=== PATIENT | female | born 1950 | race Caucasian/White ===

== ENCOUNTER → 2018-10-06 | Outpatient (CLI) | payer OTHER ==
[~2018-10-06] MED LIST: ACET-1600 PO; AMLO-150 PO; CHLO25TA PO; CYCL-259 PO; DICL100G19 TP; GLUC1CAP18 PO; HYDR-3240 PO; NAPR220T77 PO; POTA20TA89 PO
[2018-10-06 10:40] LABS: BASOPHILS # (AUTO) 0.04 x10^3/uL (0-0.1); BASOPHILS % (AUTO) 1 % (0-1); EOSINOPHILS # (AUTO) 0.13 x10^3/uL (0-0.4); EOSINOPHILS % (AUTO) 2 % (1-7); LYMPHOCYTES # (AUTO) 1.71 x10^3/uL (1-3.4); LYMPHOCYTES % (AUTO) 31 % (22-44); MD NO; MEAN CORPUSCULAR HEMOGLOBIN 33.8 pg (27.0-34.8); MEAN CORPUSCULAR HGB CONC 34.2 g/dL (32.4-35.8); MEAN CORPUSCULAR VOLUME 98.8 fL (80-100); MEAN PLATELET VOLUME 9.3 fL (7.4-10.4); MONOCYTES # (AUTO) 0.63 x10^3/uL (0.2-0.8); MONOCYTES % (AUTO) 11 % (2-9); NEUTROPHILS # (AUTO) 3.07 x10^3/uL (1.8-6.8); NEUTROPHILS % (AUTO) 55 % (42-75); PLATELET COUNT 184 x10^3/uL (130-400); RED CELL DISTRIBUTION WIDTH 13.4 % (9.6-15.2)
[2018-10-06 10:51] LABS: INTERNATIONAL NORMALIZED RATIO 1.18 (0.93-1.1); PROTHROMBIN TIME 12.3 Seconds (9.6-11.5)
[2018-10-06 10:52] LABS: ALANINE AMINOTRANSFERASE 69 U/L (12-78); ALBUMIN 3.9 g/dL (3.4-5.0); ANION GAP 9 mmol/L (5-15); CALCIUM 9.2 mg/dL (8.5-10.1); CHLORIDE 103 mmol/L (98-107); CREATININE 0.84 mg/dL (0.55-1.02)
[2018-10-06 10:54] LABS: ALKALINE PHOSPHATASE 132 U/L (45-117); BILIRUBIN,TOTAL 1.1 mg/dL (0.2-1.0); TOTAL PROTEIN 8.1 g/dL (6.4-8.2)
== END | disposition home or self-care (01) ==
LOC: STAR 09:18
PROVIDERS: ATTEND Neurological Surgery
DX: Z01.818 Encounter for other preprocedural examination (principal); M48.02 Spinal stenosis, cervical region
CPT/HCPCS: 36415; 71046; 80053; 85025; 85610; 85730; 93005

== ENCOUNTER 2018-10-20 06:11 | Inpatient (IN) | payer OTHER ==
[~2018-10-20] VITALS: Ht 165.1 cm; Wt 77.2 kg
[2018-10-20] MEDS ORDERED: LACTATED RINGERS 1,000 ML IV SCH (06:56)
[2018-10-20] MEDS ORDERED: BUPIVACAINE/EPI 0.5% 1:200K ONE (06:57)
[2018-10-20] MEDS ORDERED: THROMBIN 5,000 UNIT VIAL TP ONE ×2 (06:57→12:02)
[2018-10-20] MEDS ORDERED: BACITRACIN 50,000 UNIT ONE (06:58)
[2018-10-20] MEDS ORDERED: ACETAMINOPHEN 500 MG TABLET PO ONE (07:00)
[2018-10-20] MEDS ORDERED: ONDANSETRON ODT 8 MG PO ONE (07:00)
[2018-10-20] MEDS ORDERED: LIDOCAINE-MPF 1%, 2ML INFIL ONE (07:00)
[2018-10-20] MEDS ORDERED: GABAPENTIN 300 MG CAPSULE PO ONE (07:00)
[2018-10-20] MEDS ORDERED: FENTANYL PF 250 MCG/5ML ONE (08:11)
[2018-10-20] MEDS ORDERED: MIDAZOLAM 1 MG/ML, 2ML ONE (08:11)
[2018-10-20] MEDS ORDERED: PROPOFOL 50 ML ONE ×4 (08:11→11:27)
[2018-10-20] MEDS ORDERED: CEFAZOLIN 1,000 MG ONE ×2 (08:18)
[2018-10-20] MEDS ORDERED: DEXAMETHASONE 4 MG/ML, 1ML ONE ×2 (08:18)
[2018-10-20] MEDS ORDERED: LIDOCAINE-MPF 2% ,5ML ONE (08:18)
[2018-10-20] MEDS ORDERED: PROPOFOL 10 MG/ML, 20ML ONE (08:18)
[2018-10-20] MEDS ORDERED: SUCCINYLCHOLINE 20 MG/ML, 10ML ONE (08:18)
[2018-10-20] MEDS ORDERED: LORazepam 2 MG/ML, 1ML IVPush PRN (08:30)
[2018-10-20] MEDS ORDERED: METOCLOPRAMIDE 5 MG/ML, 2ML IV PRN (08:30)
[2018-10-20] MEDS ORDERED: MEPERIDINE/PF 25MG/0.5ML IVPush PRN (08:30)
[2018-10-20] MEDS ORDERED: HYDROmorphone 2 MG/ML, 1ML IVPush PRN (08:30)
[2018-10-20] MEDS ORDERED: OXYcodone 5 MG/5 ML ORAL.SOL UDC PO PRN (08:30)
[2018-10-20] MEDS ORDERED: ONDANSETRON 2MG/ML, 2ML IV PRN ×2 (08:30→14:00)
[2018-10-20] MEDS ORDERED: hydrALAzine 20 MG/ML, 1ML IV PRN (08:30)
[2018-10-20] MEDS ORDERED: MEPERIDINE/PF 100 MG/ML ONE (10:59)
[2018-10-20] MEDS ORDERED: FENTANYL PF 100 MCG/2ML ONE ×2 (11:27→12:06)
[2018-10-20] MEDS ORDERED: OXYcodone 5 MG/5 ML ORAL.SOL UDC ONE (12:07)
[2018-10-20] MEDS ORDERED: HYDROmorphone 2 MG/ML, 1ML ONE (12:07)
[2018-10-20] MEDS: FENTANYL PF 100 MCG/2ML IV PRN ×2 (12:09→12:40)
[2018-10-20] MEDS ORDERED: HYDROmorphone PCA 30 MG/30 ML IV PRN ×2 (12:30→13:36)
[2018-10-20] MEDS ORDERED: METHOCARBAMOL 750 MG TABLET ONE (12:48)
[2018-10-20] MEDS ORDERED: METHOCARBAMOL 750 MG TABLET PO PRN ×2 (13:00→21:00)
[2018-10-20] MEDS ORDERED: DIPHENHYDRAMINE 50 MG/ML, 1ML IM PRN (14:00)
[2018-10-20] MEDS ORDERED: HYDROmorphone 2 MG/ML, 1ML IM PRN (14:00)
[2018-10-20] MEDS ORDERED: MAGNESIUM HYDROXIDE 8%, 30ML UDC PO PRN (14:00)
[2018-10-20] MEDS ORDERED: OXYcodone/APAP 5/325MG TABLET PO PRN (14:00)
[2018-10-20] MEDS ORDERED: DIPHENHYDRAMINE 50 MG/ML, 1ML IVPush PRN (14:00)
[2018-10-20] MEDS ORDERED: BISACODYL 10 MG SUPP PR PRN (14:00)
[2018-10-20] MEDS ORDERED: LABETALOL 5MG/ML, 20ML IV PRN (14:00)
[2018-10-20] MEDS ORDERED: PROMETHAZINE 25 MG/ML, 1ML IM PRN (14:00)
[2018-10-20] MEDS ORDERED: DIPHENHYDRAMINE 50 MG CAPSULE PO PRN (14:00)
[2018-10-20] MEDS: NS + 20MEQ KCL 1,000 ML IV SCH (17:11)
[2018-10-20] MEDS: CEFAZOLIN PMX 1GM/50ML 50 ML IV SCH (17:11)
[2018-10-20] MEDS: CYCLOBENZAPRINE 10 MG TABLET PO SCH (17:11)
[2018-10-20 20:11] VITALS: BP 146/60
[2018-10-20] MEDS: HYDROcodone/APAP 5/325 TABLET PO PRN ×2 (20:57→23:35)
[2018-10-21 00:09] VITALS: BP 135/80
[2018-10-21] MEDS: CYCLOBENZAPRINE 10 MG TABLET PO SCH ×2 (01:33→07:55)
[2018-10-21] MEDS: CEFAZOLIN PMX 1GM/50ML 50 ML IV SCH (01:33)
[2018-10-21 03:26] VITALS: BP 134/73
[2018-10-21] MEDS: HYDROcodone/APAP 5/325 TABLET PO PRN ×3 (03:48→14:30)
[2018-10-21 04:47] LABS: BASOPHILS # (AUTO) 0.02 x10^3/uL (0-0.1); BASOPHILS % (AUTO) 0 % (0-1); EOSINOPHILS % (AUTO) 0 % (1-7); LYMPHOCYTES # (AUTO) 1.49 x10^3/uL (1-3.4); LYMPHOCYTES % (AUTO) 15 % (22-44); MD NO; MEAN CORPUSCULAR HGB CONC 33.7 g/dL (32.4-35.8); MEAN CORPUSCULAR VOLUME 101.2 fL (80-100); MONOCYTES # (AUTO) 0.81 x10^3/uL (0.2-0.8); MONOCYTES % (AUTO) 8 % (2-9); NEUTROPHILS # (AUTO) 7.63 x10^3/uL (1.8-6.8); NEUTROPHILS % (AUTO) 77 % (42-75); PLATELET COUNT 174 x10^3/uL (130-400); RED BLOOD COUNT 4.37 x10^6/uL (3.82-5.3); RED CELL DISTRIBUTION WIDTH 13.5 % (9.6-15.2)
[2018-10-21 04:52] LABS: ANION GAP 7 mmol/L (5-15); CALCIUM 8.4 mg/dL (8.5-10.1); CHLORIDE 105 mmol/L (98-107)
[2018-10-21 04:53] LABS: CREATININE 0.84 mg/dL (0.55-1.02)
[2018-10-21 07:06] VITALS: BP 134/80
[2018-10-21] MEDS ORDERED: POTASSIUM CHLORIDE 20 MEQ TAB.ER.PRT PO SCH (09:00)
[2018-10-21] MEDS ORDERED: CHLORTHALIDONE 25 MG TABLET PO SCH (09:00)
[2018-10-21] MEDS ORDERED: AMLODIPINE 5 MG TABLET PO SCH (09:00)
[2018-10-21] MEDS ORDERED: SENNA/DOCUSATE TABLET PO SCH (09:00)
[2018-10-21] MEDS ORDERED: METH750T87 PO (10:11)
[2018-10-21] MEDS ORDERED: DOCU-131 PO (10:12)
[2018-10-21] MEDS ORDERED: SENN-177 PO (10:14)
[2018-10-21] MEDS: NS + 20MEQ KCL 1,000 ML IV SCH (10:35)
[2018-10-21 13:08] VITALS: BP 109/71
[2018-10-21 14:45] VITALS: BP 110/68
== END 2018-10-21 15:40 | disposition home or self-care (01) | DRG 473 ==
LOC: EDSEX → ORIP 06:11 → 4NOR 13:23 → DCLOUNGE 10-21 15:29
PROVIDERS: ADMIT Neurological Surgery; ATTEND Neurological Surgery
PROC: 01N10ZZ Release Cervical Nerve, Open Approach (ICD-10-PCS; 2018-10-20)
PROC: 0RT30ZZ Resection of Cervical Vertebral Disc, Open Approach (ICD-10-PCS; 2018-10-20)
PROC: 0RG20A0 Fusion of 2 or more Cervical Vertebral Joints with Interbody Fusion Device, Anterior Approach, Anterior Column, Open Approach (ICD-10-PCS; principal; 2018-10-20 09:30)
DX: M48.02 Spinal stenosis, cervical region (principal); M54.12 Radiculopathy, cervical region; I10 Essential (primary) hypertension; M19.90 Unspecified osteoarthritis, unspecified site; J02.9 Acute pharyngitis, unspecified; G89.29 Other chronic pain; Z90.710 Acquired absence of both cervix and uterus; Z88.0 Allergy status to penicillin; Z88.6 Allergy status to analgesic agent; Z88.8 Allergy status to other drugs, medicaments and biological substances; Z87.891 Personal history of nicotine dependence; Z79.899 Other long term (current) drug therapy
CPT/HCPCS: 36415; 72040; 80048; 85025; 86850; 86900; 95938; 95941; C1713; C1776; G0378; J0690; J1100; J1170; J2250; J2405; J2704; J3010; J3480; Q0162; J0330; J2175; J7120